=== PATIENT | female | born 1955 | race Caucasian/White ===

== ENCOUNTER 2022-02-05 09:04 | Outpatient (CLI) | payer OTHER, SELFPAY ==
[2022-02-05 09:18] LABS: Hematocrit 42.8 % (35.0-49.0); Hemoglobin 14.1 g/dL (12.0-15.0); Mean Corpuscular HGB Conc 32.9 g/dL (32.0-36.0); Mean Corpuscular Hemoglobin 31.2 pg (27.0-31.0); Mean Corpuscular Volume 94.7 fL (78.0-102.0); Mean Platelet Volume 9.6 fl (9.2-11.8); Platelet Count Result 367 K/mm3 (150-420); Red Blood Count 4.52 M/mm3 (4.20-5.40); Red Cell Distribution Width 12.8 % (11.6-14.4); White Blood Count 6.8 K/mm3 (4.8-10.8)
[2022-02-05 09:35] LABS: Alanine Aminotransferase 37 U/L (14-59); Albumin Level 4.3 g/dL (3.4-5.0); Alkaline Phosphatase 65 U/L (46-116); Anion Gap 8 mmol/L (8-16); Aspartate Amino Transferase 19 U/L (15-37); Bilirubin,Total 0.4 mg/dL (0.00-1.00); Blood Urea Nitrogen 11 mg/dL (7-18); Calcium 9.2 mg/dL (8.5-10.1); Carbon Dioxide 28 mmol/L (21-32); Chloride 103 mmol/L (98-108); Cholesterol 265 mg/dL (0-200); Estimated Glomerular Filt Rate > 60; Glucose 95 mg/dL (70-99); HDL Direct 54 mg/dL (40-60); LDL Cholesterol Calculated 175 mg/dL (<130); Osmolality Calculated 287 mOsm/kg (285-295); Potassium 3.9 mmol/L (3.5-5.1); Sodium 139 mmol/L (136-145); Total Protein 7.3 g/dL (6.4-8.2); Triglycerides 180 mg/dL (0-150)
== END 2022-02-05 09:05 | disposition home or self-care (01) ==
LOC: CHSLAB 09:06
PROVIDERS: PCP Family Medicine; Visit Provider Family Medicine
DX: Z00.00 Encounter for general adult medical examination without abnormal findings (principal)
CPT/HCPCS: 36415; 80053; 80061; 85027

== ENCOUNTER 2022-02-14 12:42 | Outpatient (CLI) | payer OTHER, SELFPAY ==
--- NOTE | ~2022-02-14 | CT_ITS ---
EXAMINATION: CT lung screening DATE: 02/14/2022 13:07 INDICATION: History of tobacco dependence TECHNIQUE: Computed tomography (CT) of the chest was performed without intravenous contrast. The dose -length product was 133.14 mGy-cm. Automated exposure control and iterative reconstruction technique were employed. COMPARISON: None FINDINGS: Heart size is normal. No significant pleural or pericardial effusion. Calcified granuloma p resent in the right middle lobe. No peripheral consolidation. No endobronchial lesions. Mild precarin al lymph node enlargement measuring 1 cm, likely reactive. There is atherosclerosis of the aorta. The re are a few small scattered pulmonary nodules measuring 3 mm or less, likely benign. No endobronchia l lesions. Mild thoracic spondylosis. There are surgical changes of anterior fusion of the lower cerv ical spine. IMPRESSION: 1. Lung-RADS category 2: Benign appearance or behavior. Continue annual screening with noncontrast lo w-dose chest CT in 12 months. Reviewed, dictated and finalized at location A. IMPRESSION: 1. Lung-RADS category 2: Benign appearance or behavior. Continue annual screeni ng with noncontrast low-dose chest CT in 12 months.
== END 2022-02-14 12:43 | disposition home or self-care (01) ==
LOC: CHSIMG 12:43
PROVIDERS: PCP Family Medicine; Visit Provider Family Medicine
DX: Z87.891 Personal history of nicotine dependence (principal)
CPT/HCPCS: 71271

== ENCOUNTER 2022-02-19 12:03 | Outpatient (CLI) | payer OTHER, SELFPAY ==
--- NOTE | ~2022-02-19 | MM_ITS ---
EXAMINATION: MM screening vee BI w chelo HISTORY: Screening TECHNIQUE: Craniocaudal and mediolateral oblique 3-D tomosynthesis images were obtained and synthetic 2-D images were generated. CAD analysis was submitted and interpreted. COMPARISON: No prior mammogram is available for comparison at this institution. BREAST PARENCHYMAL COMPOSITION: The breasts are heterogeneously dense, which may obscure small masses FINDINGS: There are bilateral breast asymmetries which are obscured by dense fibroglandular tissue. T here are no suspicious calcifications. IMPRESSION: 1. Bilateral breast asymmetries. 2. Additional mammographic views and possible breast ultrasound are recommended. BI-RADS Category 0: Incomplete: Needs additional imaging evaluation. Reviewed, dictated and finalized at location A. IMPRESSION: 1. Bilateral breast asymmetries. 2. Additional mammographic views and possible breast ultrasound are recommended . BI-RADS Category 0: Incomplete: Needs additional imaging evaluation.
== END 2022-02-19 12:04 | disposition home or self-care (01) ==
LOC: CHSIMG 12:04
PROVIDERS: PCP Family Medicine; Visit Provider Family Medicine
DX: Z12.31 Encounter for screening mammogram for malignant neoplasm of breast (principal)
CPT/HCPCS: 77063; 77067

== ENCOUNTER 2022-03-01 08:53 | Outpatient (CLI) | payer OTHER, SELFPAY ==
--- NOTE | ~2022-03-01 | MMUS_ITS ---
EXAMINATION: MM diagnostic vee BI w chelo, US breast BI complete HISTORY: Follow-up breast asymmetries TECHNIQUE: Additional 3-D tomosynthesis images of the breasts were performed and synthetic 2-D images were generated. CAD analysis was submitted and interpreted. High resolution bilateral complete breas t ultrasound was performed. COMPARISON: 02/19/2022 BREAST PARENCHYMAL COMPOSITION: The breasts are heterogeneously dense, which may obscure small masses FINDINGS: MAMMOGRAPHIC FINDINGS: There are small masses centered in the upper outer quadrant of the right breast. There is a small mas s in the upper inner quadrant of the left breast, middle third. There are no suspicious calcification s or architectural distortion. ULTRASOUND: Right breast ultrasound: There are normal-appearing lymph nodes in the right axilla. No suspicious ma sses are identified in the right breast. The masses seen on mammography are likely benign intramammar y lymph nodes, although no sonographic correlate is identified. Left breast ultrasound: At 2:00, 4 cm from the nipple there are hypoechoic masses, largest of which i s parallel orientation with posterior acoustic enhancement measuring 7 mm. No internal vascularity. A t 4:00, 6 cm from the nipple, there is a 5 mm intramammary lymph node. At 7:00, 1 cm from the nipple there is a 3 mm cyst. In the retroareolar region medially there is a 3 mm cyst. There are normal-appe aring lymph nodes of the left axilla. IMPRESSION: 1. Probable benign bilateral breast masses. 2. Recommend 6 month follow-up diagnostic bilateral mammogram and ultrasound. BI-RADS category 3, probably benign findings. Reviewed, dictated and finalized at location A. IMPRESSION: 1. Probable benign bilateral breast masses. 2. Recommend 6 month follow-up diagnostic bilateral mammogram and ultrasound. BI-RADS category 3, probably benign findings.
--- NOTE | 2022-03-12 15:33 | WPDPFTINT ---
PFT Procedure Performed PFT Procedure Performed Spirometry with Pre/Post Bronchodilator PFT Interpretation DOS: 03/01/2022 REQUESTING: Dr. Elvin Cárdenas REASON FOR TESTING: dyspnea PULMONARY FUNCTION TESTS Results are reliable and reproducible. Spirometry: pre bronchodilator FEV1 is 2 L, 94% predicted, normal. Pre bronchodilator FVC is 2.89 L, 109% predicted, normal. The FEV1/FVC is 69%, mildly decreased consistent with mild airflow obstruction. After bronchodilator, FEV1 increases by 3%, FVC increases by 2%. These are insignificant changes, Not statistically significant. Flow volume loop: Normal IMPRESSION: This study shows a mild obstructive ventilatory impairment without response to bronchodilator. There are no prior studies for comparison. Lack of response to bronchodilator should not preclude use if clinically indicated. Namita Baldwin MD
== END 2022-03-01 08:54 | disposition home or self-care (01) ==
PROVIDERS: PCP Family Medicine; Visit Provider Family Medicine
DX: R06.00 Dyspnea, unspecified (principal); R92.8 Other abnormal and inconclusive findings on diagnostic imaging of breast
CPT/HCPCS: 76641; 77062; 77066; 94060; G0279

== ENCOUNTER 2022-04-01 08:20 | Outpatient (CLI) | payer OTHER, SELFPAY | END 2022-04-01 08:21 | disposition home or self-care (01) | LOC: CHSCARD 08:21 | PROVIDERS: PCP Family Medicine; Visit Provider Family Medicine | DX: R68.89 Other general symptoms and signs (principal) | CPT/HCPCS: 99199 ==

== ENCOUNTER 2022-06-21 08:51 | Outpatient (CLI) | payer OTHER, SELFPAY ==
--- NOTE | 2022-06-24 08:21 | WPDHOLTEREM ---
Holter/Event Monitor Holter/Event Monitor Date of procedure: 06/21/22 Holter/Event Procedure: 48 Hr Holter Monitor Indications: Abnormal EKG Conclusion: 1. 48 hour holter monitor on 06/21/22. 2. Predominant rhythm is sinus rhythm with sinus arrhythmia. HR range 54-140 bpm; average HR 83 bpm. 3. There are 30 premature supraventricular complexes. There is 1 episode of atrial tachycardia at 126 bpm lasting 5 beats at 01:59. 4. No premature ventricular complexes. No ventricular tachycardia. 5. No sinoatrial or atrioventricular blocks. No significant pauses greater than 2 seconds. 6. Patient reports symptoms of shortness of breath/shakiness, chest tightness which demonstrate sinus rhythm, HR range 85-102 bpm.
== END 2022-06-21 08:52 | disposition home or self-care (01) ==
LOC: CHSCARD 08:52
PROVIDERS: PCP Family Medicine; Visit Provider Family Medicine
DX: R00.9 Unspecified abnormalities of heart beat (principal)
CPT/HCPCS: 93225; 93226

== ENCOUNTER 2023-01-04 09:37 | Outpatient (CLI) | payer MEDICARE, MEDICAID, SELFPAY ==
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
== END 2023-01-04 09:38 | disposition home or self-care (01) ==
LOC: CHSIMG 09:39
PROVIDERS: PCP Family Medicine; Visit Provider Family Medicine
DX: M25.462 Effusion, left knee (principal); S80.02XA Contusion of left knee, initial encounter; M17.12 Unilateral primary osteoarthritis, left knee; M94.262 Chondromalacia, left knee
CPT/HCPCS: 73721

== ENCOUNTER 2023-01-05 10:17 | Emergency (ER) | payer MEDICARE, MEDICAID, SELFPAY ==
--- NOTE | ~2023-01-05 | XR_ITS ---
XR knee LT 3V DATE: 01/05/2023 11:08 INDICATION: Swelling and discoloration throughout the knee TECHNIQUE: Portable three-view examination including crosstable lateral COMPARISON: None FINDINGS: Very prominent anterior prepatellar soft tissue swelling. There is very prominent particular spurring at the patellofemoral and lateral compartments. There is narrowing at the patellofemoral joint. Medial and lateral compartment joint spaces appear relatively preserved. Small suprapatellar knee joint effusion is suggested. No fracture or dislocation, periosteal reaction or bone destruction, radiopaque intra-articular loose body or chondrocalcinosis is noted. IMPRESSION: Prominent prepatellar anterior soft tissue swelling Prominent osteoarthritic change, especially patellofemoral and lateral compartments Reviewed, dictated and finalized at location A. IMPRESSION: Prominent prepatellar anterior soft tissue swelling Prominent osteoarthritic change, especially patellofemoral and lateral compartm ents
[2023-01-05 10:17] VITALS: BP 154/72; PULSE 85; RESP 16; TEMP 36.8; O2SAT 100
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
== END 2023-01-05 11:40 | disposition home or self-care (01) ==
PROVIDERS: Emergency Provider Emergency Medicine
DX: M25.462 Effusion, left knee (principal); Z87.891 Personal history of nicotine dependence
CPT/HCPCS: 73562; 99283

== ENCOUNTER 2023-01-06 08:18 | Outpatient (RCR) | payer MEDICARE, MEDICAID, SELFPAY ==
--- NOTE | 2023-01-06 10:32 | OPREHPOC ---
Outpatient Therapy Plan of Care This is a Multidisciplinary Plan of Care that may contain components documented by all disciplines (PT, OT, and ST.) PT Problem 1 PT Problem #1 Knowledge Deficit PT Goal 1 Goal Patient to demonstrate independence with HEP Target Visit 6 PT Problem 2 PT Problem #2 Pain PT Goal 1 Goal 1. Patient to report highest pain at 2/10 2. Patient to report ability sleep with no disturbance due to knee pain Target Visit 12 PT Problem 3 PT Problem #3 Impaired Range of Motion PT Goal 1 Goal Patient to demonstrate 0-120 deg of L knee AROM to return to ambulation and dressing tasks at PLOF Target Visit 12 PT Problem 4 PT Problem #4 Impaired Strength PT Goal 1 Goal Patient to demonstrate 5/5 L knee strength to return to house hold tasks at PLOF.
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
--- NOTE | 2023-03-28 09:42 | OPREHPOC ---
Outpatient Therapy Plan of Care This is a Multidisciplinary Plan of Care that may contain components documented by all disciplines (PT, OT, and ST.) PT Problem 1 PT Problem #1 Knowledge Deficit PT Goal 1 Goal Patient to demonstrate independence with HEP Target Visit 6 Progress Met PT Problem 2 PT Problem #2 Pain PT Goal 1 Goal 1. Patient to report highest pain at 2/10 2. Patient to report ability sleep with no disturbance due to knee pain Target Visit 12 Progress Met PT Problem 3 PT Problem #3 Impaired Range of Motion PT Goal 1 Goal Patient to demonstrate 0-120 deg of L knee AROM to return to ambulation and dressing tasks at PLOF Target Visit 12 Progress Met PT Problem 4 PT Problem #4 Impaired Strength PT Goal 1 Goal Patient to demonstrate 5/5 L knee strength to return to house hold tasks at PLOF. Target Visit 12 Progress Met PT Problem 5 PT Problem #5 Impaired Functional Mobil PT Goal 1 Goal 1. Patient to report ability to roll in bed with no increase in room spinning 2. Patient to demonstrate no nystagmus with R modified epely 3. Patient to demonstrate to navigate 1 flight of stairs with no increase in knee pain Target Visit 8 Progress Met
--- NOTE | 2023-03-28 09:42 | PTOPDC ---
Assessment and note entered by Marsha Galaviz DPT Evaluation Information Assessment Status Re-evaluation Diagnosis L knee pain, dizziness Onset 12/29/22 Subjective Information Patient reports that she has been able to return to prior daily activities. She reports she has been able to return to work for her prior shifts as well. She reports veritgo room spinning has resolved. She reports independence with HEP. Reported Pain Level Pain Score 0: Self Report Assessment PT Clinical Summary Patient attended 15 visits of skilled PT with all goals met during POC. She met goals for strength, pain, ROM, stair navigation and bppv symptoms. She has been able to return to all previous activities at [facility]. She is independent with HEP and is appropriate for DC at this time. Plan of Care PT Services Indicated No
== END 2023-03-28 14:52 | disposition home or self-care (01) ==
LOC: CHSPT 08:18
PROVIDERS: PCP Family Medicine; Visit Provider Orthopaedic Surgery
DX: M25.462 Effusion, left knee (principal); H81.11 Benign paroxysmal vertigo, right ear
CPT/HCPCS: 95992; 97014; 97016; 97110; 97112; 97150; 97161; 97164; 97530; 97750; G0283

== ENCOUNTER 2023-01-14 01:09 | Day surgery (SDC) | payer MEDICARE, MEDICAID, SELFPAY ==
[2023-01-10 13:28] VITALS: BMI 24.5
--- NOTE | 2023-01-10 13:55 | PC.NURSE ---
Report to the Outpatient Waiting Room, entrance under the green pavilion located off [facility], at time __1:00PM on date ___01/14/23____. Planned Procedure Time: __3:00PM . Time changes happen often and if your time is changed the preop area will call you the afternoon before. - You and your visitor will be asked to self-screen and do not enter if you have any COVID symptoms. - A mask is optional within the hospital at this time. Patients may have clear liquids (water, carbonated beverages, clear teas, apple juice) until 3 hours prior to surgery with a maximum of 20 ounces. - No food from midnight until time of surgery. Take the following medications with a SIP of water the morning of surgery: __TYLENOL W/ CODEINE NEEDED DO NOT STOP ANY OF YOUR OTHER PRESCRIPTION MEDICATIONS PRIOR TO SURGERY ?EXCEPT THE FOLLOWING Medications to discontinue per physician ___HOLD MELOXICAM 7 DAYS PRE-OP-TOOK LAST DOSE YESTERDAY/DR GEE AWARE PER PATIENT.___HOLD ALL VITAMINS/SUPPLEMENTS 3 DAYS PRE-OP-LAST DOSE 01/10/23 Please no make-up, nail jamaican, hairspray, perfume, deodorant, or body powder the day of surgery. No jewelry (including any body piercings) or valuables the day of surgery, leave them at home. Please take a shower or bath the night before, or the morning of, surgery with an antibacterial soap. Wear comfortable, loose fitting clothing. Children are encouraged to wear pajamas. - Jewelry must be removed prior to entering the operating room. Rings and piercings that are not removed may be cut off. - The hospital will not accept responsibility for valuables. - Please leave all valuables, including medications, at home the day of surgery. If you are going home after surgery, a licensed driver manager must drive you home. - NO public transportation without another adult if you receive anesthesia. - We recommend that an adult stay with you for 24 hours following discharge. - We also recommend that you do not drive, make important decision, drink alcoholic beverages, or take any drugs that were not prescribed by your health care provider for at least 24 hours after your discharge time. Follow any additional instructions given to you from your surgeon. If you or anyone in your household have experienced Covid symptoms in the past week, please notify your surgeon or the nurse liaison at the phone number below for possible testing. Telephone instructions given to ___PATIENT and asked if any additional questions and then verbalized understanding. Patient advised to call surgeon office or pre surgery nurse liaison [phone] if any additional questions.
[2023-01-14] VITALS (7 sets, daily range): BP systolic 129–150; BP diastolic 55–94; PULSE 69–94; RESP 14–20; TEMP 36.6; O2SAT 97–100
--- NOTE | 2023-01-14 07:27 | WPDHPUPDATE1 ---
History and Physical Update Update Date/Time: 01/14/23 07:27 History and Physical has been reviewed, including an updated exam of the patient. There are NO changes in the patient's condition. Risks, benefits, and alternatives have been discussed and questions answered. Patient agrees to proceed with procedure.
[2023-01-14] MEDS: ACETAMINOPHEN 500 MG TABLET 1000 MG PO (12:34)
[2023-01-14] MEDS: LACTATED RINGERS 1,000 ML 30 ML IV CONT (12:50)
--- NOTE | 2023-01-14 12:53 | WPDANESEPPF ---
Anes - Initial Pre Proc Eval Procedure: Operation Date: 01/14/23 15:00 Proposed Procedures p Evacuation Hematoma Left Knee - Leobardo Bennett MD Date/Time: 01/14/23 12:53 Surgeon: Leobardo Bennett MD Pre Op Diagnosis: hematoma left knee, contusion of knee, DJD Patient Data Age: 67 Gender: F Height: 1.57 m Weight: 61 kg Allergies Allergy/AdvReac Type Severity Reaction Status Date / Time morphine AdvReac Unknown Vomiting Verified 01/14/23 12:32 Home Medications Medication Instructions Recorded Confirmed Type acetaminophen 300 mg-codeine 15 mg 1 tablet PO Q8H PRN pain #14 tabs 01/05/23 01/14/23 Rx tablet meloxicam 15 mg tablet 15 mg PO DAILY #14 tabs 01/05/23 01/14/23 Rx acetaminophen 500 mg tablet 500 mg PO Q6-8H PRN Pain 01/10/23 01/14/23 History lactobacillus combination no.8 3 3 cell PO HS 01/10/23 01/14/23 History billion cell capsule [id number] ear See Rx Instructions .Route .COMPLEX 01/10/23 01/14/23 History drops,suspension hydrocodone 5 mg-acetaminophen 325 1 - 2 tablet PO Q4-6H PRN pain #30 01/14/23 Rx mg tablet tabs Patient hx anesthesia problems: none Family hx anesthesia problems: none Results Review: All pre-operative results and documents have been reviewed as part of the pre-operative evaluation. [facility] Past Medical History Medical History (Updated 01/14/23 @ 13:05 by Alejandro Payne DO) POTS (postural orthostatic tachycardia syndrome) Surgical History Surgical History History of hysterectomy 1995 History of neck surgery 2002 History of tubal ligation 1989 Social History Social History Smoking packs per day: 1 Smoking cigarettes per day: 20.0 Years smoked: 25 Smoking pack-years: 25.00 Smoking status: Former smoker Tobacco type: cigarettes Smoking end date: 11/09/98 Additional smoking assessment comments: Quit at age 43. 25 pk yr history Alcohol intake: current Drinks per week: 4 Substance use: never Lack of Transportation: No Lack of Food: Never True Current Housing: I Have Housing Concerned About Future Housing: No Difficulty Paying Gas/Electric Bills: No Difficulty Paying for Meds: No Currently Unemployed: No Education: High School Diploma/GED Difficulty w/ Childcare or Family Care: No Living arrangements: with family Additional living arrangements comments: CHILD Spiritual care concerns: No Anes - Eval Final PreProcedure Day of Procedure 01/14/23 12:53 Patient weight: normal Heart: regular rate and rhythm Lungs: clear to auscultation Airway: Mallampati scale class II Neurological: alert and oriented Last oral intake: >/= 8 hours ASA classification: II Emergent: no Anesthetic plan: proceed Anesthesia type and monitoring: general LMA and standard monitoring Results Review: All pre-operative results and documents have been reviewed as part of the pre-operative evaluation. Informed Consent: The patient's anesthetic plan and its attendant risks and benefits were discussed with the patient/family/POA. Questions were solicited and answers provided to the satisfaction of the patient/family/POA.
[2023-01-14] MEDS: KETOROLAC 15 MG/ML VIAL (*BKC) IV PUSH (12:55)
[2023-01-14] MEDS: ceFAZolin 2 GM/D5W 50 ML 2 GM/50 ML BAG IVPB (13:57)
[2023-01-14] MEDS: BUPivacaine HCL 0.25% PF 30 ML VIAL INFILTRATE (14:30)
--- NOTE | 2023-01-14 15:07 | W.PM.PROC2 ---
Procedure Note - Detailed Date of Procedure 01/14/23 Pre-op Diagnosis Hematoma left knee, contusion of knee, with Brown Mulberry lesion. Post-op Diagnosis Same Procedure Performed Evacuation left knee subcutaneous hematoma. Surgeon Leobardo Bennett MD Anesthesia General Findings Very large thick bloody hematoma. Significant degloving injury of the subcutaneous tissues along the medial patellar retinaculum. Description of Procedure Preoperative antibiotics were given. A general anesthetic was administered. Leg was prepped and draped in the usual sterile fashion. A longitudinal incision was centered just proximal and medial to the proximal pole of the patella. This was made such that a future total knee incision would be in continuity with the scar. Dissection was brought down through subcutaneous tissues. Expression of copious coagulated blood was easily performed at this point. The wound was copiously irrigated with antibiotic saline solution. The subcutaneous tissues were closed with 3-0 Monocryl suture and the skin closed with vertical mattress 3-0 Prolene suture. Bulky dressing was applied with a knee immobilizer. The patient was extubated and brought to the recovery room in stable condition. There were no complications. Estimated Blood Loss -5.0 Drains No Packing No Pathology None sent Complications No immediate complications Condition Stable Disposition PACU [facility] Billing Surgery - Charge Forward: Surgery Billing
== END 2023-01-14 16:15 | disposition home or self-care (01) ==
PROVIDERS: PCP Family Medicine; Visit Provider Orthopaedic Surgery
PROC: (CPT 27301; principal; 2023-01-14 15:00)
DX: S80.02XA Contusion of left knee, initial encounter (principal); V29.99XA Rider (driver) (passenger) of other motorcycle injured in unspecified traffic accident, initial encounter; M17.12 Unilateral primary osteoarthritis, left knee; Z87.891 Personal history of nicotine dependence
CPT/HCPCS: 27301; A9270; J0690; J1100; J1885; J2250; J2405; J2704; J3010; J7120

== ENCOUNTER 2024-01-15 12:05 | Outpatient (CLI) | payer MEDICARE, SELFPAY ==
--- NOTE | ~2024-01-15 | XR_ITS ---
XR shoulder RT min 2V 01/15/2024 12:27 Indication: Right shoulder pain Procedure: 4 views right shoulder Comparison: No prior studies for comparison. Findings: There is mild polyarticular osteoarthritis of the right shoulder. No soft tissue abnormalit y. No foreign bodies. No fracture or traumatic malalignment. Impression: 1: Mild polyarticular osteoarthritis. Reviewed, dictated and finalized at location B. Impression: 1: Mild polyarticular osteoarthritis.
--- NOTE | ~2024-01-15 | XR_ITS ---
EXAMINATION: XR_CERV2-3V_CR DATE: 01/15/2024 12:27 INDICATION: Pain in right shoulder. TECHNIQUE: 3 views of cervical spine were obtained. COMPARISON: None. FINDINGS: There is 2 mm retrolisthesis of C4 on C5 and 2 mm anterolisthesis of C7 on T1. There is 4 d egrees dextrocurvature of cervical spine. There are changes of anterior fusion procedure from C5 to C 7 with interbody bone graft and anterior plate and screws. There is moderately decreased disc height at C3-C4 and severely decreased disc height at C4-C5. At C4-C5, there is severe bilateral uncovertebr al joint osteoarthritis. There is multilevel mild facet joint osteoarthritis. There is no central can al stenosis at C3-C4 and C4-C5. No prevertebral soft tissue swelling. IMPRESSION: 1. Severe cervical spondylosis. 2. Anterior fusion procedure from C5 to C7. Reviewed, dictated and finalized at location A.
== END 2024-01-15 12:06 | disposition home or self-care (01) ==
LOC: CHSIMG 12:09
PROVIDERS: PCP Family Medicine; Visit Provider Family Medicine
DX: M25.511 Pain in right shoulder (principal); M43.02 Spondylolysis, cervical region; Z98.1 Arthrodesis status; M19.011 Primary osteoarthritis, right shoulder
CPT/HCPCS: 72040; 73030

== ENCOUNTER 2024-01-28 10:07 | Outpatient (CLI) | payer MEDICARE, SELFPAY ==
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
== END 2024-01-28 10:08 | disposition home or self-care (01) ==
LOC: MICIMG 10:08
PROVIDERS: PCP Family Medicine; Visit Provider Psychiatry & Neurology Neurology
DX: Z87.828 Personal history of other (healed) physical injury and trauma (principal)
CPT/HCPCS: 70551

== ENCOUNTER 2024-02-02 08:52 | Outpatient (RCR) | payer MEDICARE, SELFPAY ==
--- NOTE | 2024-02-02 09:59 | PTOPEVAL1 ---
Assessment and note entered by Sterling Parker Evaluation Information Assessment Status Evaluation ICD-10 Condition Codes (PT) M25.511 Onset 01/02/24 Subjective Information Pt. reports that pain began while mowing grass 1 month ago. She reports that she was using a push mower and felt pain after pulling the mower. She reports she went to the doctor and was given mm. relaxer. She states that it does help the pain. She describes pain from the neck into the shoulder . She reports that she has improve slightly over the moth. Pain is most notable in morning. She notices pain with mopping or vacuuming her home. She states that she has no trouble with sleeping at night. She does have hx of neck fusion at C4-5 -6. 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 She states that her goal is to decrease her neck and shoulder pain. Reported Pain Level Pain Score 2: Self Report Assessment PT Clinical Summary Pt. is a 68 year old female who enters the clinic with right shoulder pain. Pt. objective findings are consistent with cervical nerve root impingement on this date. She presents with impaired postural awareness, impaired periscapular strength, pain, impaired cervical spine ROM and functional decline. Continued skilled PT is indicated in order to improve these areas to allow the pt. to be able to complete all IADL's with improved comfort and efficiency. Plan of Care Interventions Electrical Stimulation,Hot Pack/Cold Pack,Manual Therapy,Neuro Re-education,Patient/Caregiver Educati,Therapeutic Activities,Therapeutic Exercise PT Services Indicated Yes Treatment Frequency and 2x/week x 10 visits Duration These treatments will address the objective and functional deficits as defined above. The patient will be advanced safely and appropriately in order for the patient to progress towards his/her prior level of function. Additional exercises will be introduced and as well as a comprehensive home exercise program upon discharge, if needed, ?to ensure carryover of functional gains achieved in the clinic. This treatment plan has been reviewed and agreement upon by the patient.
--- NOTE | 2024-02-02 09:59 | OPREHPOC ---
Outpatient Therapy Plan of Care This is a Multidisciplinary Plan of Care that may contain components documented by all disciplines (PT, OT, and ST.) PT Problem 1 PT Problem #1 Knowledge Deficit PT Goal 1 Goal / Goal Update Pt. will be independent with a HEP addressing postural awareness and strength Target Visit 2 PT Problem 2 PT Problem #2 Pain PT Goal 1 Goal / Goal Update Pt. will report pain reduction to 1/10 at worst at the area of the right neck and upper trap Pt. will be able to sleep through the night without pain disturbance. Target Visit 10 PT Problem 3 PT Problem #3 Impaired Range of Motion PT Goal 1 Goal / Goal Update Pt. will demonstrate 80 degrees active c-spine rotation in order to improve visual field with activities such as driving Target Visit 5 PT Problem 4 PT Problem #4 Impaired Functional Mobil PT Goal 1 Goal / Goal Update Pt. will present with less than 20% limitation on the Quick DASH indicating significant Target Visit 10
--- NOTE | 2024-03-05 10:01 | OPREHPOC ---
Outpatient Therapy Plan of Care This is a Multidisciplinary Plan of Care that may contain components documented by all disciplines (PT, OT, and ST.) PT Problem 1 PT Problem #1 Knowledge Deficit PT Goal 1 Goal / Goal Update Pt. will be independent with a HEP addressing postural awareness and strength Target Visit 2 Progress Met PT Problem 2 PT Problem #2 Pain PT Goal 1 Goal / Goal Update Pt. will report pain reduction to 1/10 at worst at the area of the right neck and upper trap Pt. will be able to sleep through the night without pain disturbance. Target Visit 10 Progress Not Met PT Problem 3 PT Problem #3 Impaired Range of Motion PT Goal 1 Goal / Goal Update Pt. will demonstrate 80 degrees active c-spine rotation in order to improve visual field with activities such as driving Target Visit 5 Progress Not Met PT Problem 4 PT Problem #4 Impaired Functional Mobil PT Goal 1 Goal / Goal Update Pt. will present with less than 20% limitation on the Quick DASH indicating significant Target Visit 10 Progress Not Met
--- NOTE | 2024-03-05 10:02 | PTOPDC ---
Assessment and note entered by JT File, PT Evaluation Information Assessment Status Discharge ICD-10 Condition Codes (PT) M25.511 Onset 01/02/24 Subjective Information patient reports she has shooting pains at times still that shoot down the R side neck, into the shoulder, and down the arm. she reports this pain is increased with movement, but it depends on the movement according to the patient. she reports raising the R arm up is painful, pulling on the dogs toys is painful, and trying to lift objects with the R arm is painful. she reports she also has shooting pains when turning the head to the R too quickly. she reports this morning her symptoms have included numbness down the fingers of the R hand and behind the back of the R arm. she reports she is really unchanged since starting skilled PT . Reported Pain Level Pain Score 3: Self Report Assessment PT Clinical Summary mrs. aguirre presents to skilled PT services for her 10th skilled PT visit. she continues to have symptoms in the R neck and down the R UE. her symptoms indicate a likely R cervical radiculopathy. she is not improved since starting PT, and has only met goal for HEP performance. she has worsened per the quick dash and displays decreased cervical arom rotation and R triceps strength. she will DC skilled PT today due to lack of improvement with treatment, and would best return to PCP for referral to [id number] specialist. Plan of Care PT Services Indicated Yes
== END 2024-03-05 14:02 | disposition home or self-care (01) ==
LOC: CHSPT 08:52
PROVIDERS: Visit Provider Family Medicine
DX: M25.511 Pain in right shoulder (principal)
CPT/HCPCS: 97014; 97110; 97112; 97140; 97161; G0283

== ENCOUNTER 2024-02-12 11:42 | Outpatient (CLI) | payer MEDICARE, SELFPAY ==
[2024-02-12 11:53] LABS: Basophils Absolute Auto 0.07 K/mm3 (0.00-0.10); Eosinophils Absolute Auto 0.11 K/mm3 (0.02-0.50); Eosinophils Percent Auto 1.5 % (1.0-6.0); Hematocrit 39.8 % (35.0-42.0); Hemoglobin 13.5 g/dL (11.7-13.8); Immature Granulocyte Absolute 0.02 K/mm3 (0.00-0.00); Immature Granulocyte Percent A 0.3 % (0.0-0.0); Lymphocytes Absolute Auto 3.02 K/mm3 (1.10-4.50); Lymphocytes Percent Auto 42.2 % (18.0-42.0); Mean Corpuscular HGB Conc 33.9 g/dL (32-36); Mean Corpuscular Hemoglobin 32.4 pg (27.0-31.0); Mean Corpuscular Volume 95.4 fL (78.0-102.0); Mean Platelet Volume 9.6 fl (9.2-11.8); Monocytes Percent Auto 8.4 % (2.0-11.0); Neutrophils Absolute Auto 3.33 K/mm3 (1.70-7.20); Neutrophils Percent Auto 46.6 % (50.0-70.0); Platelet Count Result 323 K/mm3 (150-420); Red Blood Count 4.17 M/mm3 (4.20-5.40); Red Cell Distribution Width 12.6 % (11.6-14.4); White Blood Count 7.2 K/mm3 (4.8-10.8)
[2024-02-12 12:59] LABS: Alanine Aminotransferase 25 U/L (14-59); Albumin Level 4.3 g/dL (3.4-5.0); Alkaline Phosphatase 56 U/L (46-116); Anion Gap 10 mmol/L (4-12); Aspartate Amino Transferase 19 U/L (15-37); Bilirubin,Total 0.3 mg/dL (0.00-1.00); Blood Urea Nitrogen 12 mg/dL (7-18); Calcium 9.2 mg/dL (8.5-10.1); Carbon Dioxide 29 mmol/L (21-32); Chloride 104 mmol/L (98-108); Cholesterol 263 mg/dL (0-200); Estimated Glomerular Filt Rate > 60; Glucose 94 mg/dL (70-99); HDL Direct 61 mg/dL (40-60); LDL Cholesterol Calculated 169 mg/dL (<130); Osmolality Calculated 295 mOsm/kg (285-295); Potassium 4.5 mmol/L (3.5-5.1); Sodium 143 mmol/L (136-145); Total Protein 6.8 g/dL (6.4-8.2); Triglycerides 165 mg/dL (0-150)
[2024-02-12 13:00] LABS: Thyroid Stimulating Hormone Reflex 0.37 u/IU/mL (0.36-3.74)
== END 2024-02-12 11:43 | disposition home or self-care (01) ==
LOC: CHSLAB 11:43
PROVIDERS: PCP Family Medicine; Visit Provider Family Medicine
DX: E03.9 Hypothyroidism, unspecified (principal); S80.02XA Contusion of left knee, initial encounter; Z13.6 Encounter for screening for cardiovascular disorders; R51.9 Headache, unspecified
CPT/HCPCS: 36415; 80053; 80061; 84443; 85025

== ENCOUNTER 2024-02-13 07:15 | Outpatient (CLI) | payer MEDICARE, SELFPAY ==
--- NOTE | ~2024-02-13 | CT_ITS ---
EXAMINATION: CTA BRAIN/CAROTID DATE: 02/13/2024 08:27 INDICATION: Right-sided ischemic optic neuropathy TECHNIQUE: Computed tomographic angiography (CTA) of the head and neck was performed with 100 mL Omni paque-350 intravenous contrast. Multiplanar reconstructions and maximum intensity projection 3D-recon structions of the carotid arteries and of the intracranial arteries were created by the technologist on a separate workstation. Precontrast CT of the head was also obtained. Automated exposure control and iterative reconstruction technique were employed.The dose-length product was 894.45 mGy-cm. COMPARISON: None. FINDINGS: Carotid arteries: There is no evident atherosclerotic plaque with 0% stenosis of the right carotid bulb relative to nor mal distal artery lumen diameter (NASCET criteria). There is a small amount of atherosclerotic plaque with 0% stenosis of the left carotid bulb relative to normal distal artery lumen diameter. Bilateral vertebral arteries are codominant with no evident atherosclerosis. Cervical soft tissues are unremar kable. Moderate emphysema and minimal pleural parenchymal scarring at the visualized apices of the naya ngs. Severe cervical spondylosis with C5-C7 anterior spinal fusion with anterior plate and screw fixa tion. Head: No acute intracranial hemorrhage, acute infarction or abnormal extra axial fluid collection. Ventricl es are normal and symmetric. No mass/mass effect. No abnormally enhancing brain lesions on the postco ntrast imaging. The orbits, paranasal sinuses and mastoid air cells are normal. Intracranial arteries Small amount of calcified atherosclerotic plaque without significant stenosis at the right carotid si phon. There is no hemodynamically significant stenosis in the vertebral, basilar and internal carotid arteries. Vertebral arteries are codominant. There are no aneurysms identified. Both A1 and P1 segm ents are patent. Cerebral arterial arborization appears symmetric. IMPRESSION: 1. No evident plaque with 0% stenosis of the right carotid bulb relative to normal distal artery lume n diameter (NASCET criteria). 2. Small amount of atherosclerotic plaque with 0% stenosis of the left carotid bulb relative to alvina l distal artery lumen diameter. 3. Unremarkable head CT and cerebral CT angiogram. Reviewed, dictated and finalized at location A. IMPRESSION: 1. No evident plaque with 0% stenosis of the right carotid bulb relative to nor mal distal artery lumen diameter (NASCET criteria). 2. Small amount of atherosclerotic plaque with 0% stenosis of the left carotid bulb relative to normal distal artery lumen diameter. 3. Unremarkable head CT and cerebral CT angiogram.
== END 2024-02-13 07:16 | disposition home or self-care (01) ==
PROVIDERS: PCP Family Medicine; Visit Provider Psychiatry & Neurology Neurology
DX: R51.9 Headache, unspecified (principal); R42 Dizziness and giddiness; G89.29 Other chronic pain; H47.011 Ischemic optic neuropathy, right eye; S09.90XS Unspecified injury of head, sequela
CPT/HCPCS: 70496; 70498; Q9967

== ENCOUNTER 2024-03-27 08:22 | Outpatient (CLI) | payer MEDICARE, SELFPAY ==
--- NOTE | ~2024-03-27 | MR_ITS ---
EXAMINATION: MR cervical spine wo con DATE: 03/27/2024 09:10 INDICATION: Spondylosis without myelopathy or radiculopathy. TECHNIQUE: Magnetic resonance imaging (MRI) of the cervical spine was performed without intravenous c ontrast. Sequences included sagittal T2-weighted FSE, sagittal T2-weighted FS FSE, sagittal T1-weight ed FSE, axial MERGE, and axial T2-weighted FSE. COMPARISON: Cervical spine radiographs 01/15/2024 FINDINGS: There is 3 mm retrolisthesis of C4 on C5. There changes of anterior fusion procedure from C 5 to C7 with interbody bone graft and anterior plate and screws. There is mild chronic anterior wedgi ng of C3 vertebral body. There is moderately decreased disc height at C3-C4 and severely decreased di sc height at C4-C5. The spinal cord signal intensity is normal. The following disc levels are specifi amer[place] discussed: C2-C3: The disc does not extend beyond the endplate margin. There is no uncovertebral joint osteoarth ritis. There is severe right and mild left facet joint osteoarthritis. There is no neural foraminal s tenosis. There is no central canal stenosis. C3-C4: The disc is bulging. There is severe bilateral uncovertebral joint osteoarthritis. There is se chloé bilateral facet joint osteoarthritis. There is severe right and moderate left neural foraminal s tenosis. There is mild central canal stenosis with ventral indentation of the spinal cord. C4-C5: The disc is bulging. There is severe bilateral uncovertebral joint osteoarthritis. There is mo derate bilateral facet joint osteoarthritis. There is severe bilateral neural foraminal stenosis. The re is moderate central canal stenosis with ventral and dorsal indentation of the spinal cord. C5-C6: There is mild bilateral uncovertebral joint hypertrophy. There is no facet joint hypertrophy. There is no neural foraminal stenosis. There is no central canal stenosis. C6-C7: There is mild right and moderate left uncovertebral joint hypertrophy. There is mild right fac et joint osteoarthritis. There is mild left neural foraminal stenosis. There is no central canal sten osis. C7-T1: The disc does not extend beyond the endplate margin. There is no uncovertebral joint osteoarth ritis. There is moderate right and severe left facet joint osteoarthritis. There is mild left neural foraminal stenosis. There is no central canal stenosis. IMPRESSION: 1. Severe cervical spondylosis. 2. Anterior fusion procedure from C5 to C7. Reviewed, dictated and finalized at location A. O COMPUTER SPECIALIST
== END 2024-03-27 08:23 | disposition home or self-care (01) ==
LOC: CHSIMG 08:25
PROVIDERS: PCP Family Medicine; Visit Provider Family Medicine
DX: M47.812 Spondylosis without myelopathy or radiculopathy, cervical region (principal); Z98.1 Arthrodesis status
CPT/HCPCS: 72141

== ENCOUNTER 2024-09-22 13:49 | Outpatient (CLI) | payer MEDICARE, SELFPAY ==
--- OUTSIDE RECORDS SUMMARY | 2024-09-22 14:01 | XMS_ITS | Referral Summary ---
Author Organization [facility] Address [address] [place] [address] Care Team Providers Care Chief Service Observer Name Role Phone Elvin Cárdenas DO Primary Care Provider Encounters Date Type Department Care Team Description 09/08/2024 10:15 AM CDT Office Visit [facility] Ophthalmology [address] [place] [phone] Hank Watkins MD NAION (non-arteritic anterior ischemic optic neuropathy), right eye (Primary Dx); Optic neuropathy, right 09/08/2024 9:30 AM CDT Imaging Exam [facility] Ophthalmology [address] [phone] Pseudopapilledema of both optic discs 09/08/2024 9:20 AM CDT Imaging Exam [facility] Ophthalmology [address] [place] [phone] Pseudopapilledema of both optic discs; Encounter for observation for other suspected diseases and conditions ruled out 08/31/2024 Telephone [facility] Ophthalmology [facility] [address] [phone] Hank Watkins MD 07/28/2024 Orders Only [facility] Ophthalmology [address] [facility] [address] [place] [address] Hank Watkins MD Pseudopapilledema of both optic discs (Primary Dx); Encounter for observation for other suspected diseases and conditions ruled out from Last 3 Months Allergies Active Allergy Reactions Criticality Noted Date Comments Morphine Other (See comments),Unknown Medium 022 Nausea Medications atorvastatin (LIPITOR) 80 mg tablet Take 1 tablet (80 mg total) by mouth daily Active lactobacillus combo no.11 15 billion cell capsule, sprinkle Take by mouth Active vitamins A,C,U-tfkx-oazmq r (OCUVITE) 2,148 mcg-113 mg-45 mg-17.4mg tablet 1 tablet Active Active Problems Problem Noted Date Diagnosed Date Optic neuropathy, right 09/08/2024 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), 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 Head injury 06/07/2024 Migraine 06/07/2024 Cervical vertebral fusion 06/07/2024 Neck pain 06/07/2024 POTS (postural orthostatic tachycardia syndrome) 06/07/2024 Overview (06/07/2024): Diagnosed in 2022 Social History Tobacco Use Types Packs/Day Years Used Date Smoking Tobacco: Former Cigarettes Tobacco Cessation:Counseling Given: Not Answered Comments Unknown Sex and Gender Information Value Date Recorded Sex Assigned at Not on file 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 Gender Identity Not on file Sexual Orientation Not on file Plan of Treatment Not on file Procedures Procedure Name Priority Date/Time Associated Diagnosis Comments OCT, OPTIC NERVE - OU - BOTH EYES Routine 09/08/2024 9:40 AM CDT Pseudopapilledema of both optic discs OCT, RETINA - OU - BOTH EYES Routine 09/08/2024 9:40 AM CDT Encounter for observation for other suspected diseases and conditions ruled out BARAKAT VISUAL FIELD - OU - BOTH EYES Routine 09/08/2024 9:40 AM CDT Pseudopapilledema of both optic discs from Last 3 Months Results * OCT, Optic Nerve - OU - Both Eyes (09/08/2024 9:40 AM CDT) RNFL OS 86 micrometers CONTINUUM RNFL OD 71 micrometers CONTINUUM Anatomical Region Laterality Modality Head Other Narrative 09/08/2024 5:44 PM CDT Right Eye Reliability was good. Average RNFL thickness 71 micrometers. Left Eye Reliability was good. Average RNFL thickness 86 micrometers. Notes Mild, diffuse retinal nerve fiber layer thinning OD with focal superior thinning. Stable. Stable and normal retinal nerve fiber layer thickness left eye (OS). Hank Watkins MD OPHTH TOMOGRAPHY Fin al Result * OCT, Retina - OU - Both Eyes (09/08/2024 9:40 AM CDT) Central Macular Thickness OS 270 mircometers CONTINUUM Central Macular Thickness OD 273 micrometers CONTINUUM Anatomical Region Laterality Modality Head Other Narrative 09/08/2024 5:45 PM CDT Right Eye Quality was good. Scan locations included subfoveal. Progression has been stable. Findings include normal foveal contour. Macular thickness was 273 micrometers. Left Eye Quality was good. Scan locations included subfoveal. Progression has been stable. Findings include normal foveal contour. Macular thickness was 270 mircometers. Notes GCL OD: 82 OS: 81 Normal macular and ganglion cell layer (GCL) thickness both eyes (OU). Stable both eyes (OU). Hank Watkins MD OPHTH TOMOGRAPHY Fin al Result * Barakat Visual Field - OU - Both Eyes (09/08/2024 9:40 AM CDT) Pattern Deviation OS 1.74 dB CONTINUUM Pattern Deviation OD 4.45 dB CONTINUUM Mean Deviation OS 0.56 dB CONTINUUM Mean Deviation OD -1.32 dB CONTINUUM Anatomical Region Laterality Modality Head Other Narrative 09/08/2024 5:44 PM CDT Right Eye Fixation was borderline. Cooperation was good. Reliability was borderline. Progression has improved. Foveal threshold was normal. Findings include inferior nasal step defect. Mean Deviation was -1.32 dB. Pattern Deviation was 4.45 dB. Left Eye Fixation was good. Cooperation was good. Reliability was good. Progression has been stable. Foveal threshold was normal. Findings include non-specific defects. Mean Deviation was 0.56 dB. Pattern Deviation was 1.74 dB. Hank Watkins MD OPHTH VISUAL FIELD F inal Result from Last 3 Months [id number] MEDICARE ADVANTAGE Care Teams Chief Service Observer Relationship Specialty Start Date End Date Elvin Cárdenas DO [address] [place] [address] PCP - General Family Medicine 02/24/24
--- OUTSIDE RECORDS SUMMARY | 2024-09-22 14:01 | XMS_ITS | Clinical Summary ---
Author Organization [facility] Address [address] [place] [address] Care Team Providers Care Cleaning Handyman Name Role Phone Saurabhza Elvinconrad TYLER Primary Care Provider [phone] Ubaldo Negrete MD Unavailable [phone] Allergies Active Allergy Reactions Criticality Noted Date Comments Morphine Unknown 04/19/2022 Medications metoprolol tartrate (LOPRESSOR) 25 MG tablet Take 1 tablet (25 mg total) by mouth 2 (two) times daily. 60 tablet 3 Active isosorbide mononitrate ER (IMDUR) 30 MG 24 hr tablet Take 1 tablet (30 mg total) by mouth daily. 30 tablet 5 3 Active COMPRESSION STOCKINGS, DME,Indications: POTS (postural orthostatic tachycardia syndrome) Apply 1 Package topically daily. Jobst knee high 20-30mmHg of choice 2 Package 2 3 Active Active Problems Problem Noted Date Diagnosed Date POTS (postural orthostatic tachycardia syndrome) 07/03/2022 Essential (primary) hypertension 07/03/2022 Chest pain 04/19/2022 SOBOE (shortness of breath on exertion) 04/19/20 Resolved Problems Problem Noted Date Diagnosed Date Resolved Date Secondary hypertension 06/21/202207/03 Social History Tobacco Use Types Packs/Day Years Used Date Smoking Tobacco: Former Cigarettes Tobacco Cessation:Counseling Given: Not Answered Comments Unknown Sex and Gender Information Value Date Recorded Sex Assigned at Not on file 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 Gender Identity Not on file Sexual Orientation Not on file Last Filed Vital Signs Vital Sign Reading Time Taken Comments Blood Pressure 140/90 07/03/2022 9:31 AM ELASTIC ATTACHER 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 Pulse 88 07/03/2022 9:30 AM ELASTIC ATTACHER OVERLOCK Temperature 35.6 C (96.1 F) 05/20/2022 1:00 PM ELASTIC ATTACHER OVERLOCK Respiratory Rate 18 07/03/2022 9:30 AM ELASTIC ATTACHER OVERLOCK Oxygen Saturation 96% 05/20/2022 1:00 PM ELASTIC ATTACHER OVERLOCK Inhaled Oxygen Concentration - - Weight 64.4 kg (142 lb) 07/03/2022 9:30 AM ELASTIC ATTACHER OVERLOCK Height 157.5 cm (5' 2 ) 07/03/2022 9:30 AM ELASTIC ATTACHER OVERLOCK Body Mass Index 25.97 07/03/2022 9:30 AM ELASTIC ATTACHER 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 Plan of Treatment Health Maintenance Due Date Last Done Comments Colorectal Cancer Screening Colonoscopy (10 Years) 1957 Hepatitis C 07/14/1975 DTaP, Tdap and Td Vaccines ( 1 - Tdap) 1976 Mammogram Screening 1997 Pneumococcal Vaccine: 50+ Years (1 of 1 - PCV) 07/14/2007 Zoster Vaccines (1 of 2) 07/14/2007 Dexa Scan (General) 2022 COVID-19 Vaccine (3 - 2023-2 5 season) 2024 04/12/2022, 03/27/2021 RSV Immunization or 60+ Years (1 - 1-dose 75+ series) 2032 Meningococcal B Vaccine Aged Out No l onger eligible based on patient's age to complete this topic Meningococcal Vaccine Aged Out No gold claudette eligible based on patient's age to complete this topic RSV Immunizations Under 20 Months Aged Out No longer eligible b ased on patient's age to complete this topic Insurance [employer] Care Teams Cleaning Handyman Relationship Specialty Start Date End Date Elvin Cárdenas DO [address] [place] [address] PCP - General FAMILY PRACTICE 04/18/22 Ubaldo Negrete MD [address] [place] [address] Consulting Physician INTERVENTIONAL CARDIOLOGY 04/18/22
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
--- NOTE | 2024-09-22 14:47 | ECG_ITS ---
Test Date: 2024-09-22 15:00:54 Measurements Intervals [place] Rate: 76 P: 57 FL: 120 QRS: 13 QRSD: 98 T: 41 QT: 381 QTc: 429 Interpretive Statements SINUS RHYTHM WITH SINUS ARRHYTHMIA WARNING: DATA QUALITY MAY AFFECT INTERPRETATION No previous ECG available for comparison Electronically Signed On 09-22-2024 18:23:12 CDT by Lori Bowens
[2024-09-22 15:24] LABS: Hematocrit 39.8 % (37.0-47.0); Hemoglobin 13.2 g/dL (12.0-15.0); Mean Corpuscular HGB Conc 33.2 g/dl (32-36); Mean Corpuscular Hemoglobin 31.6 pg (26-34); Mean Corpuscular Volume 95.2 fl (80-100); Mean Platelet Volume 10.1 fl (7.4-10.4); Platelet Count Result 343 k/mm3 (150-375); Red Blood Count 4.18 M/mm3 (4.2-5.4); Red Cell Distribution Width 12.8 % (11.5-14.5); White Blood Count 8.8 K/mm3 (4.5-10.0)
[2024-09-22 15:26] LABS: Prothrombin Time 13.3 Seconds (11.1-14.7)
[2024-09-22 15:27] LABS: Partial Thromboplastin Time 29.5 Seconds (22.3-36.8)
[2024-09-22 15:30] LABS: Anion Gap 9 mmol/L (4-12); Blood Urea Nitrogen 11 mg/dL (7-17); Calcium 9.5 mg/dL (8.4-10.2); Carbon Dioxide 27 mmol/L (22-30); Chloride 106 mmol/L (98-107); Estimated Glomerular Filt Rate > 60; Glucose 95 mg/dL (65-110); Potassium 3.7 mmol/L (3.4-5.0); Sodium 142 mmol/L (137-145)
[2024-09-22 15:35] LABS: Add Urine Microscopic? YES; Appearance Urine Clear (Clear); Bacteria Urine None Seen /hpf; Bilirubin Urine Negative (Negative); Blood Urine Negative (Negative); Color Urine Yellow (Yellow); Glucose Urine UA Negative (Negative); Ketones Urine Negative (Negative); Leukocyte Esterase Ur Trace LEU/UL (Negative); Nitrate Urine Negative (Negative); Non Pathogenic Casts 0-2; Protein Urine Negative (Negative); RBC Urine 0-2 /hpf (0-2); Specific Grav Ur 1.015 (1.001-1.035); Squamous Epithelial Cell Urine None Seen /hpf (Few); WBC Urine 0-5 /hpf (0-3)
== END 2024-09-22 13:50 | disposition home or self-care (01) ==
LOC: ANHSURGERY 13:52
PROVIDERS: PCP Family Medicine; Visit Provider Neurological Surgery
DX: M47.812 Spondylosis without myelopathy or radiculopathy, cervical region (principal); Z01.818 Encounter for other preprocedural examination
CPT/HCPCS: 36415; 80048; 81001; 85027; 85610; 85730; 86850; 86900; 86901; 93005

== ENCOUNTER 2024-10-05 00:33 | Day surgery (SDC) | payer MEDICARE, SELFPAY ==
[2024-09-22 13:58] VITALS: BMI 24.7
--- NOTE | 2024-09-22 14:07 | PC.NURSE ---
Report to the Outpatient Waiting Room, entrance under the green pavilion located off [facility], at time _10:30 AM on date __10/05/24 . Planned Procedure Time: __12:30 PM .? Time changes happen often and if your time is changed the preop area will call you the afternoon before. - You and your visitor will be asked to self-screen and do not enter if you have any COVID symptoms. Please call surgeon if you need to reschedule. - A mask is optional within the hospital at this time. Patients may have clear liquids (water, carbonated beverages, clear teas, apple juice) until 3 hours prior to surgery ( 9:30 AM)with a maximum of 20 ounces. - No food from midnight until time of surgery and no smoking, or chewing tobacco (or any form of nicotine). No chewing gum, candy or mints. - Infants may have breast milk until 4 hours before surgery, infant formula 6 hours prior to surgery. - Children will be allowed to drink immediately following surgery.? If applicable, please bring a bottle or sippy cup to assist with drinking. Juice, water, soda, and popsicles are readily available.? For infants on formula, please bring formula the day of surgery.? Pacifiers are allowed. Take only the following medications with a SIP of water on the morning of surgery: NONE DO NOT STOP ANY OF YOUR OTHER PRESCRIPTION MEDICATIONS PRIOR TO SURGERY EXCEPT THE FOLLOWING Hold all vitamins and supplements for 3 days per anesthesiologist.LAST DOSE 10/01/24 Medications to discontinue per physician IBUPROFEN PER DR PATEL Please no make-up, nail uruguayan, hairspray, perfume, deodorant, or body powder the day of surgery.? No jewelry (including any body piercings) or valuables the day of surgery, leave them at home.? Please take a shower or bath the night before, or the morning of, surgery with an antibacterial soap.? Wear comfortable, loose fitting clothing.? Children are encouraged to wear pajamas. - Jewelry must be removed prior to entering the operating room.? Rings and piercings that are not removed may be cut off. - The hospital will not accept responsibility for valuables.? - Please leave all valuables, including medications, at home the day of surgery. If you are going home after surgery, a licensed class a truck driver must drive you home.? - NO public transportation without another adult if you receive anesthesia. - We recommend that an adult stay with you for 24 hours following discharge. - We also recommend that you do not drive, make important decision, drink alcoholic beverages, or take any drugs that were not prescribed by your health care provider for at least 24 hours after your discharge time. For Pediatric surgeries, we recommend two adults accompany the child home. Follow any additional instructions given to you from your surgeon. VERBAL AND WRITTEN instructions given to __PATIENT and asked if any additional questions and then verbalized understanding. Patient advised to call surgeon office or pre surgery nurse liaison [phone] if any additional questions.
[2024-09-22 14:44] VITALS: BP 131/78; PULSE 73; RESP 18; TEMP 37.1; O2SAT 99
[2024-10-05] VITALS (11 sets, daily range): BP systolic 127–171; BP diastolic 58–84; PULSE 62–97; RESP 10–20; TEMP 36–36.6; O2SAT 93–100
--- NOTE | ~2024-10-05 | XR_ITS ---
XR fluoroscopy no charge Indication: Anterior cervical discectomy TECHNIQUE: Fluoroscopy used during Anterior cervical discectomy performed by [Karson Johnson MD] on 10/05/2024. 3 seconds of fluoroscopy with 2 fluoroscopic images captured. FINDINGS: Correlate with procedure note. IMPRESSION: Fluoroscopy used during Anterior cervical discectomy. Reviewed, dictated and finalized at location A.
--- OUTSIDE RECORDS SUMMARY | 2024-10-05 00:36 | XMS_ITS | Referral Summary ---
Author Organization [facility] Address [address] [place] [address] Care Team Providers Care Long Filler Cigar Roller Machine Name Role Phone Elvin Cárdenas DO Primary Care Provider Encounters Date Type Department Care Team Description 09/08/2024 10:15 AM CDT Office Visit [facility] Ophthalmology [address] [place] [phone] Hank Watkins MD NAION (non-arteritic anterior ischemic optic neuropathy), right eye (Primary Dx); Optic neuropathy, right 09/08/2024 9:30 AM CDT Imaging Exam [facility] Ophthalmology [address] [phone] Pseudopapilledema of both optic discs 09/08/2024 9:20 AM CDT Imaging Exam [facility] Ophthalmology [address] [place] [phone] Pseudopapilledema of both optic discs; Encounter for observation for other suspected diseases and conditions ruled out 08/31/2024 Telephone [facility] Op[facility]mology [facility] [address] [phone] Hank Watkins MD 07/28/2024 Orders Only [facility] Ophthalmology [address] [facility] [address] [place] [phone] Hank Watkins MD Pseudopapilledema of [...] capsule, sprinkle Take by mouth Active vitamins A,C,O-five-bdbnw r (OCUVITE) 2,148 mcg-113 mg-45 mg-17.4mg tablet [...] on file 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
--- NOTE | 2024-10-05 12:38 | P.HP_ITS ---
H&P: HPI History of Present Illness Date/Time: 10/05/24 12:38 Chief Complaint: Neck and arm pain Narrative: Cheryl is a 68-year-old female with a past medical history significant for a C5-6 and C6-7 anterior cervical diskectomy and fusion done in 2002 or 2003. She now has about a 6 month history of pain in her neck radiating to her right shoulder and down her right upper extremity all the way down to the fingers nonspecifically. She does not report any specific muscle group weakness or dermatomal numbness. She does not have any bowel or bladder difficulty. Her pain does seem to be worse with activity that is a gets worse the more active she is. It especially her to the next day after being particularly active. It is severe and limiting for her on a daily basis. She participated in physical therapy without any permanent benefit. Review of Systems Review of Systems: All systems reviewed & are unremarkable except as noted in HPI and below Denies chills, Denies fever, Denies weight gain and Denies weight loss Eyes Denies change in vision and Denies diplopia ENT Denies disequilibrium Card Denies chest pain and Denies dyspnea Resp Denies cough and Denies dyspnea GI Denies abdominal pain, Denies change in bowel habits, Denies fecal incontinence and Denies vomiting Denies hematuria, Denies oliguria, Denies difficulty urinating, Denies dysuria, Denies urinary frequency, Denies urinary hesitancy, Denies urinary incontinence and Denies urinary urgency Musc Reports as per HPI Skin/ Breast Reports system reviewed and no additional complaints, except as documented Neuro Reports as per HPI Psych Reports no additional complaints, Denies depression and Denies hopelessness Endo Reports no additional complaints and Denies polyuria Bruno/ Lymph Reports no additional complaints Aller/ Immun Reports no additional complaints PMFSH Past Medical History Medical History Anterior ischemic optic neuropathy, right eye Chronic headaches POTS (postural orthostatic tachycardia syndrome) Surgical History Surgical History History of tubal ligation 1989 History of neck surgery 2002 History of hysterectomy 1995 Family History Family History Other Cancer Social History Social History (Updated 07/06/24 @ 09:31 by Brittni Burnett CMA) Smoking packs per day: 1 Smoking cigarettes per day: 20.0 Years smoked: 25 Smoking pack-years: 25.00 Smoking status: Former smoker Tobacco type: cigarettes Smoking end date: 05/12/98 Additional smoking assessment comments: Quit at age 43. 25 pk yr history Alcohol intake: current Drinks per week: 6 Substance use: never Substance use type: does not use Do You Feel Safe in your Home?: Yes Lack of Transportation: No Lack of Food: Never True Current Housing: I Have Housing Concerned About Future Housing: No Difficulty Paying Gas/Electric Bills: No Difficulty Paying for Meds: No Currently Unemployed: Decline to Answer Education: High School Diploma/GED Difficulty w/ Childcare or Family Care: No Living arrangements: with family Additional living arrangements comments: CHILD Spiritual care concerns: No Meds Home Medications and Allergies Home Medications ?Medication ?Instructions ?Recorded ?Confirmed ?Type atorvastatin 40 mg tablet 40 mg PO DAILY #90 tabs 02/12/24 09/22/24 Rx ibuprofen 400 mg tablet (IBU) 400 mg PO PRN PRN pain 09/22/24 10/05/24 History lactobacillus combination no.4 3 3,000 mmu cells PO DAILY 09/22/24 09/22/24 History billion cell capsule (Probiotic) Allergies Allergy/AdvReac Type Severity Reaction Status Date / Time morphine AdvReac Severe Vomiting Verified 10/05/24 12:08 Vital Signs Vital Signs - 24 hr 10/05/24 11:00 Temperature 97.8 F Pulse Rate 62 Respiratory Rate 14 Blood Pressure 142/76 H Pulse Oximetry 100 Oxygen Delivery Room Air Exam Narrative: General: cooperative, no acute distress, well developed, alert and awake Orientation/Consciousness: oriented to person, oriented to place and oriented to time Constitutional Limitations: no limitations Other: The patient is a normally developed, normal appearing female sitting on the examination table in no acute distress. She is awake, alert, and oriented x3 wit h good fund of knowledge, recall of events, and fluent speech. HENDC Head: normocephalic and atraumatic Ears: external ears normal Face/Nose/Sinus: Normal external nose present Eyes Eyelids: eyelids normal Pupils: Yes Pupils normal by confrontation EOM: EOMs intact bilaterally Neck General: Yes no meningeal signs, Yes supple and Yes no JVD Resp Effort/Inspection: normal respiratory effort and able to speak in complete sentences Cardio Rate: Yes regular rate GI Inspection: No abdominal distension Musc Other: Examination of the back reveals no tenderness. Range of motion of the back is full without pain in forward flexion, extension, and lateral rotation to both sides. Straight leg raise is negative bilaterally. Antwan?s test is negative bilaterally. Skin General: normal color Neuro General: Yes oriented to person, Yes oriented to place, Yes oriented to time, Yes normal cognition and Yes no meningeal signs Cranial Nerves: Yes CN's II-XII intact bilaterally Other: Motor: Strength is normal, 5/5, throughout all muscle groups of the bilateral upper extremities to direct confrontation. Sensory: Sensation is intact to light touch throughout the upper extremities bilaterally. Reflexes: Deep tendon reflexes Are normal and symmetric at the knees and ankles and at the biceps and brachioradialis bilaterally. They were difficult to elicit the triceps. There is no Mendoza's. There is no clonus. Gait: Gait, station, and transfers are independent and steady for short periods of time and over short distances. Psych Appearance: grossly normal Mental status: Yes mental status grossly normal Mood: congruent mood Affect: Yes normal affect Speech/Movement: Normal speech and movement present Attitude: Yes cooperative Thought Content: Normal thought content present Review of studies: MRI of the cervical spine was personally reviewed by me. This demonstrates stable appearing construct from C5-7. At C3-4 and C4-5 there is significant degeneration of the disc worst at C4-5 with foraminal stenosis also worst at C4- 5 bilaterally. There is retrolisthesis of C4 on C5. Assessment and Plan Assessment and plan (1) Cervical spondylosis: Code(s): M47.812 - Spondylosis without myelopathy or radiculopathy, cervical region Status: Acute (2) Foraminal stenosis of cervical region: Code(s): M48.02 - Spinal stenosis, cervical region Status: Acute Plan Cheryl is a 68-year-old female with neck and arm discomfort on the right related to the process at C3-4 and C4-5. I see no fence of pathology at C7-T1 and the construct at C5 through 7 appears solid. I have recommended to her anterior cervical diskectomy and fusion at C3-4 and C4-5 and described to her that operation, its risks, potential benefits, the operative and postoperative course in detail and answered all her questions personally. We discussed risks including but not limited to permanent neurologic or functional deficit related injury of the trachea, esophagus, carotid artery, jugular vein, recurrent laryngeal nerve causing hoarseness or aspiration, spinal cord or nerve roots causing permanent neurologic deficit, need for reoperation secondary to infection, bleeding, CSF leak, adjacent level disease, recurrent residual pathology or instability, malposition migration of the hardware or nonunion, failure of the procedure to relieve her pain or symptoms, persistent pain, medical complications related anesthesia or surgery, etc.. She indicates understanding and elects to proceed with that operation.
--- NOTE | 2024-10-05 12:42 | P.PNAN_ITS ---
Anes - Initial Pre Proc Eval Procedure: Operation Date: 10/05/24 12:30 Proposed Procedures p C3-4, C4-5 Anterior Cervical Discectomy and Fusion - Karson Johnson MD Date/Time: 10/05/24 12:42 Surgeon: Karson Johnson MD Pre Op Diagnosis: c3-4, c4-5 spondylosis, neuroforam narrow Patient Data Age: 69 Gender: F Height: 1.56 m Weight: 59.3 kg Last Vital Signs Temp 97.8 F 10/05/24 11:00 Pulse 62 10/05/24 11:00 Resp 14 10/05/24 11:00 BP 142/76 H 10/05/24 11:00 Pulse Ox 100 10/05/24 11:00 O2 Del Method Room Air 10/05/24 11:00 Allergies Allergy/AdvReac Type Severity Reaction Status Date / Time morphine AdvReac Severe Vomiting Verified 10/05/24 12:08 Home Medications ?Medication ?Instructions ?Recorded ?Confirmed ?Type atorvastatin 40 mg tablet 40 mg PO DAILY #90 tabs 02/12/24 09/22/24 Rx ibuprofen 400 mg tablet (IBU) 400 mg PO PRN PRN pain 09/22/24 10/05/24 History lactobacillus combination no.4 3 3,000 mmu cells PO DAILY 09/22/24 09/22/24 History billion cell capsule (Probiotic) hydrocodone 5 mg-acetaminophen 325 1 - 2 tablet PO Q4H PRN pain #30 10/06/24 Rx mg tablet tabs methylprednisolone 4 mg tablets in See Rx Instructions PO PER PKG DIR 10/21/24 Rx a dose pack (Medrol (Chacho)) #21 ea Patient hx anesthesia problems: none Family hx anesthesia problems: none Results Review: All pre-operative results and documents have been reviewed as part of the pre- operative evaluation. [facility] Past Medical History Medical History Anterior ischemic optic neuropathy, right eye Chronic headaches POTS (postural orthostatic tachycardia syndrome) Surgical History Surgical History History of tubal ligation 1989 History of neck surgery 2002 History of hysterectomy 1995 Family History Family History Other Cancer Social History Social History (Updated 07/06/24 @ 09:31 by Brittni Burnett CMA) Smoking packs per day: 1 Smoking cigarettes per day: 20.0 Years smoked: 25 Smoking pack-years: 25.00 Smoking status: Former smoker Additional smoking assessment comments: Quit at age 43. 25 pk yr history Alcohol intake: current Drinks per week: 6 Substance use: never Substance use type: does not use Do You Feel Safe in your Home?: Yes Lack of Transportation: No Lack of Food: Never True Current Housing: I Have Housing Concerned About Future Housing: No Difficulty Paying Gas/Electric Bills: No Difficulty Paying for Meds: No Currently Unemployed: Decline to Answer Education: High School Diploma/GED Difficulty w/ Childcare or Family Care: No Living arrangements: with family Additional living arrangements comments: CHILD Spiritual care concerns: No Anes - Eval Final PreProcedure Day of Procedure 10/05/24 12:42 Patient weight: normal Heart: regular rate and rhythm Lungs: clear to auscultation Airway: Mallampati scale class II Neurological: alert and oriented Last oral intake: >/= 8 hours ASA classification: III Emergent: no Anesthetic plan: proceed Anesthesia type and monitoring: general ETT and standard monitoring Results Review: All pre-operative results and documents have been reviewed as part of the pre- operative evaluation. Informed Consent: The patient's anesthetic plan and its attendant risks and benefits were discussed with the patient/family/POA. Questions were solicited and answers provided to the satisfaction of the patient/family/POA.
[2024-10-05] MEDS: LACTATED RINGERS 1,000 ML 30 ML IV CONT ×2 (12:55→14:58)
--- NOTE | 2024-10-05 13:06 | WPDHPUPDATE1 ---
History and Physical Update Update Date/Time: 10/05/24 13:06 History and Physical has been reviewed, including an updated exam of the patient. There are NO changes in the patient's condition. Risks, benefits, and alternatives have been discussed and questions answered. Patient agrees to proceed with procedure.
[2024-10-05] MEDS: LIDO 1%/EPINEPHRINE 1:100,000 20 ML VIAL 10 ML INFILTRATE (13:12)
[2024-10-05] MEDS: ceFAZolin 2 GM/D5W 50 ML 2 GM/50 ML BAG IVPB (13:12)
--- NOTE | 2024-10-05 14:51 | P.OP_ITS ---
Procedure Note - Detailed Date of Procedure 10/05/24 Pre-op Diagnosis c3-4, c4-5 spondylosis, neuroforam narrow Post-op Diagnosis Same Procedure Performed C3-4 and C4-5 complete diskectomy and bilateral neural foraminotomy, C3-4 and C4-5 interbody arthrodesis and anterior cervical plating utilizing peek interbody device with integral titanium plate and screws. Surgeon Karson Johnson MD Anesthesia General Description of Procedure Patient was brought to the operating room in the supine position, was sedated, intubated placed under general anesthesia in routine fashion. The of operation on the right side of the neck was examined, marked for incision, prepped routine sterile fashion. Incision was marked from the midline over the medial aspect of the sternocleidomastoid muscle and curvilinear transverse fashion 2 fingerbreadths above the sternal notch. This area was injected with 0.5% lidocaine with [id number] epinephrine. Intravenous antibiotics given prior to incision. Incision was made with a 10 blade scalpel down to the platysma muscle. The skin was undermined the platysma muscle was divided longitudinally with its fibers using Metzenbaum scissors. A plane was then dissected medial to the sternocleidomastoid muscle down to the anterior aspect of spine using the finger Metzenbaum scissors. A verifying x-rays obtained to verify the level of operation. The longus colli muscle was dissected free of the anterior aspect of the spine in a subperiosteal plane using Bovie cautery at C3-4 and C4-5. Shadow Line retractor system was placed. Cordell pins were placed in C3 and C5 and distraction placed over both interspaces. The anterior plate below was identified. Diskectomy and arthrodesis procedures were performed identically at each level. The disc space was entered using a 15 blade scalpel cutting along the margin of the bone above and below. A curved curette pituitary rongeur used to remove as much cartilaginous endplate and disc material as possible down to the annulus and ligament posteriorly. A [employer] drill was used to bur down the endplates to bleeding cortical flat surfaces as well as to begin a bony foraminotomy bilaterally. Under microscopy the annulus and ligament were interrupted using an 4-0 curved curette. 2. Kerrison punch was used to remove annulus, ligament, posterior osteophyte and to complete a bony foraminotomy bilaterally. This was done until a nerve hook could be placed out each foramen and in the ventral epidural space to confirm lack of compression. The disc spaces were then sized appropriately sized interbody devices with interval titanium plates were chosen filled with local autograft bone and magnetos. It was necessary to remove the plate below using the appropriate drivers as it interfered with the device is being placed. The fusions were explored at C5-6 and C6-7 to make sure that there was solid bony fusion at both levels. This was confirmed. The integral interbody devices and anterior plates were then placed flush with the disc spaces. The Cordell pins and distraction removed. A hand drill was used to create holes diagonally at an angle into the endplates above and below at each device and 4 x 16 mm screws were placed into the locking mechanism of the device. The locking mechanism was engaged at each screw. A verifying x-rays obtained to verify good position of the instrumentation which was confirmed. The wound was then copiously irrigated with bacitracin irrigation all bleeding stopped with bipolar and Bovie cautery and Gelfoam thrombin powder. The wound was then closed in layered fashion with 3-0 Vicryl interrupted sutures in the platysma muscle and in the dermis. The skin was closed with a running 4-0 Monocryl subcuticular stitch and dressed with Dermabond. The patient was allowed to wake up in the operating room and was taken to the recovery room in stable condition. There were no immediate complications of this operation. All counts reported correct at the end the case. Blood loss was 25 cc. The patient was neurologically at baseline postoperatively. CPT codes: 65511, 48731, 86008, 04470 x 2, 24770 x 2, 33652 X2 Estimated Blood Loss 25 Complications None Condition Stable Disposition PACU [facility] Billing Surgery - Charge Forward: Surgery Billing
[2024-10-05] MEDS: HYDROcodone/acetaminophen (*CRX) 10-325 MG TABLET 1 TAB PO ×2 (16:39→21:13)
[2024-10-05] MEDS: CYCLOBENZAPRINE HCL 10 MG TABLET PO (16:39)
[2024-10-05] MEDS: ONDANSETRON INJ 4 MG/2 ML VIAL IV PUSH (17:45)
[2024-10-05] MEDS: DOCUSATE SODIUM 100 MG CAPSULE PO (21:13)
[2024-10-06] MEDS: HYDROcodone/acetaminophen (*CRX) 10-325 MG TABLET 1 TAB PO ×2 (01:28→06:12)
[2024-10-06 02:03] VITALS: BP 128/59; PULSE 73; RESP 12; TEMP 36.2; O2SAT 100
[2024-10-06] MEDS: ONDANSETRON INJ 4 MG/2 ML VIAL IV PUSH (03:11)
[2024-10-06 06:03] VITALS: BP 136/66; PULSE 80; RESP 14; TEMP 36.1; O2SAT 99
[2024-10-06 08:37] LABS: Basophils Absolute Auto 0.1 K/mm3 (0.0-0.1); Basophils Percent Auto 0.3 % (0.2-1.2); Hematocrit 39.8 % (37.0-47.0); Hemoglobin 13.6 g/dL (12.0-15.0); Immature Granulocyte Absolute 0.07 K/mm3 (0.00-0.031); Immature Granulocyte Percent A 0.4 % (0-0.5); Lymphocytes Absolute Auto 2.04 K/mm3 (0.9-3.2); Lymphocytes Percent Auto 11.5 % (18.3-44.2); Mean Corpuscular HGB Conc 34.2 g/dl (32-36); Mean Corpuscular Hemoglobin 32.4 pg (26-34); Mean Corpuscular Volume 94.8 fl (80-100); Mean Platelet Volume 9.8 fl (7.4-10.4); Monocytes Percent Auto 11.4 % (2.6-8.5); Neutrophils Absolute Auto 13.5 K/mm3 (1.3-6.7); Neutrophils Percent Auto 76.4 % (45.5-73.1); Platelet Count Result 300 k/mm3 (150-375); Red Cell Distribution Width 12.8 % (11.5-14.5); White Blood Count 17.7 K/mm3 (4.5-10.0)
[2024-10-06 08:50] LABS: Alanine Aminotransferase 21 U/L (6-35); Albumin Level 4.7 g/dL (3.5-5.1); Alkaline Phosphatase 49 U/L (38-126); Anion Gap 8 mmol/L (4-12); Aspartate Amino Transferase 28 U/L (14-36); Bilirubin,Total 0.6 mg/dL (0.2-1.3); Blood Urea Nitrogen 13 mg/dL (7-17); Calcium 9.5 mg/dL (8.4-10.2); Carbon Dioxide 27 mmol/L (22-30); Chloride 100 mmol/L (98-107); Estimated CRCL calculation 74 ml/min; Estimated Glomerular Filt Rate > 60; Glucose 107 mg/dL (65-110); Potassium 3.8 mmol/L (3.4-5.0); Sodium 135 mmol/L (137-145)
[2024-10-06 10:03] VITALS: BP 126/69; PULSE 68; RESP 16; TEMP 36.4; O2SAT 100
[2024-10-06] MEDS: HYDROcodone/acetaminophen (*CRX) 5-325 MG TABLET 1 TAB PO (10:20)
[2024-10-06] MEDS: DOCUSATE SODIUM 100 MG CAPSULE PO (10:20)
[2024-10-06] MEDS: ACIDOPHILUS/BULGARICUS CHEWABLE TABLET 1 TABLET PO (10:20)
[2024-10-06] MEDS: ATORVASTATIN 40 MG TABLET PO (10:20)
[2024-10-06] MEDS: CYCLOBENZAPRINE HCL 10 MG TABLET PO (10:21)
== END 2024-10-06 13:56 | disposition home or self-care (01) ==
LOC: ANHSURGERY 10:04 → ANH3MEDSUR 16:04
PROVIDERS: PCP Family Medicine; Visit Provider Neurological Surgery
PROC: (CPT 63030; principal; 2024-10-05 12:30)
DX: M47.812 Spondylosis without myelopathy or radiculopathy, cervical region (principal); M48.02 Spinal stenosis, cervical region; R51.9 Headache, unspecified; G90.A Postural orthostatic tachycardia syndrome [POTS]; Z79.1 Long term (current) use of non-steroidal anti-inflammatories (NSAID); Z98.890 Other specified postprocedural states; Z98.51 Tubal ligation status; Z98.1 Arthrodesis status; Z87.891 Personal history of nicotine dependence; Z80.9 Family history of malignant neoplasm, unspecified
CPT/HCPCS: 22551; 22552; 22853 ×2; 20936; 36415; 80053; 85025; 97161; 97165; 99199; A9270; C1713; J0690; J1100; J1171; J2003; J2004; J2250; J2405; J2704; J3010; J7120

== ENCOUNTER 2024-11-22 09:09 | Outpatient (CLI) | payer MEDICARE, SELFPAY ==
--- NOTE | ~2024-11-22 | XR_ITS ---
[id number] Ordering provider: Karson Johnson MD History: . M48.02 - Spinal stenosis, cervical region . Comparison: January 15, 2024 FINDINGS: VERTEBRAL BODIES: Normal height and alignment. No visible fracture or subluxation. The dens is intact . Postoperative changes at the level of C3-C4 and C4-C5 noted. DISK SPACES: Narrowing of the disc C6-C7 with possible effusion. Fusion at the level of C5-C6 is also highly suggestive. PARASPINOUS SOFT TISSUES: No prevertebral soft tissue swelling. IMPRESSION: No acute osseous abnormality cervical spine. Postoperative changes seen anteriorly. Reviewed, dictated and finalized at location A.
--- OUTSIDE RECORDS SUMMARY | 2024-11-22 09:14 | XMS_ITS | Referral Summary ---
Author Organization [facility] Address [address] [place] [address] Care Team Providers Care Health Care Legal Assistant Name Role Phone Elvin Cárdenas DO Primary Care Provider Encounters Date Type Department Care Team Description 09/08/2024 10:15 AM CDT Office Visit [facility] Ophthalmology [address] [place] [address] [phone] Hank Watkins MD NAION (non-arteritic anterior ischemic optic neuropathy), right eye (Primary Dx); Optic neuropathy, right 09/08/2024 9:30 AM CDT Imaging Exam [facility] Ophthalmology [address] [place] [address] [place] [phone] Pseudopapilledema of both optic discs 09/08/2024 9:20 AM CDT Imaging Exam [facility] Ophthalmology [address] [place] [phone] Pseudopapilledema of both optic discs; Encounter for observation for other suspected diseases and conditions ruled out 08/31/2024 Telephone [facility] Ophthalmology [address] [place] [address] [phone] Hank Watkins MD from Last 3 Months Allergies Active Allergy Reactions Criticality Noted Date Comments Morphine Other (See comments),Unknown Medium 022 Nausea Medications atorvastatin (LIPITOR) 80 mg tablet Take 1 tablet (80 mg total) by mouth daily Active lactobacillus combo no.11 15 billion cell capsule, sprinkle Take by mouth Active vitamins A,C,T-txmy-vbgke r (OCUVITE) 2,148 mcg-113 mg-45 mg-17.4mg tablet [...] on file 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 MEDICARE AD[facility]AGE [facility] MEDICARE Address: [address] [address] [facility] MEDICARE AD[facility]AGE [facility] MEDICARE Address: [address] [address] Care Teams Health Care Legal Assistant Relationship Specialty Start Date End Date Elvin Cárdenas DO [address] [place] [address] PCP - General Family Medicine 02/24/24
--- OUTSIDE RECORDS SUMMARY | 2024-11-22 09:14 | XMS_ITS | Clinical Summary ---
Author Organization [facility] Address [address] [place] [address] Care Team Providers Care Industrial Electrician Name Role Phone Elvin Cárdenas DO Primary Care Provider Allergies Active Allergy Reactions Criticality Noted Date Comments Morphine Other (See comments),Unknown Medium 022 Nausea Medications atorvastatin (LIPITOR) 80 mg tablet Take 1 tablet (80 mg total) by mouth daily Active lactobacillus combo no.11 15 billion cell capsule, sprinkle Take by mouth Active vitamins A,C,W-kcyt-mpjqy r (OCUVITE) 2,148 mcg-113 mg-45 mg-17.4mg tablet [...] Description 09/08/2024 10:15 AM CDT Office Visit [facility]mology [address] [facility] [address] [place] [phone] Hank Watkins MD NAION (non-arteritic anterior ischemic optic neuropathy), right eye (Primary Dx); Optic neuropathy, right 09/08/2024 9:30 AM CDT Imaging Exam [facility] Ophthalmology [address] [place] [address] [phone] Pseudopapilledema of both optic discs 09/08/2024 9:20 AM CDT Imaging Exam [facility] Ophthalmology [address] [place] [phone] Pseudopapilledema of both optic discs; Encounter for observation for other suspected diseases and conditions ruled out 08/31/2024 Telephone [facility]hthal[facility] [address] [phone] Hank Watkins MD from Last 3 Months Surgical History Surgery [...] on file 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 us Hank Watkins MD OPHTH TOMOGRAPHY [facility] al Result * OCT, Retina - OU [...] inal Result from Last 3 Months Insurance [facility] MEDICARE ADVANTAGE [facility] Address: [address] [address] [place] [address] [facility] MEDICARE ADVANTAGE [facility] Address: [address] [address] [place] [address] Care Teams Industrial Electrician Relationship Specialty Start Date End Date Elvin Cárdenas DO [address] [place] [address] PCP - General Family Medicine 02/24/24
== END 2024-11-22 09:10 | disposition home or self-care (01) ==
LOC: CHSIMG 09:11
PROVIDERS: PCP Family Medicine; Visit Provider Neurological Surgery
DX: M48.02 Spinal stenosis, cervical region (principal)
CPT/HCPCS: 72040

== ENCOUNTER 2025-02-05 12:03 | Outpatient (CLI) | payer MEDICARE, SELFPAY ==
--- NOTE | ~2025-02-05 | MR_ITS ---
EXAMINATION: MR cervical spine wo con DATE: 02/05/2025 12:45 INDICATION: Cervical spine fusion. TECHNIQUE: Magnetic resonance imaging (MRI) of the cervical spine was performed without intravenous contrast. COMPARISON: Cervical spine MRI 03/27/2024, radiographs 11/22/2024 FINDINGS: There is 2 mm anterolisthesis of C7 on T1. There are changes of anterior fusion procedure at C3-C4 and C4-C5 with interbody devices and anterior plates and screws. There is healed interbody fusion at C5-C6 and C6-C7. The spinal cord signal intensity is normal. The following disc levels are sp ecifically discussed: C2-C3: The disc does not extend beyond the endplate margin. There is no uncovertebral joint osteoarthritis. There is severe right and mild left facet joint osteoarthritis. There is mild right neural foraminal stenosis. There is no central canal stenosis. C3-C4: There is severe bilateral uncovertebral joint hypertrophy. There is severe bilateral facet joint osteoarthritis. There is moderate right and mild left neural foraminal stenosis. There is mild central canal stenosis. C4-C5: There is severe bilateral uncovertebral joint hypertrophy. There is moderate bilateral facet joint osteoarthritis. There is severe bilateral neural foraminal stenosis. There is mild central canal stenosis. C5-C6: There is mild bilateral uncovertebral joint hypertrophy. There is no facet joint hypertrophy. There is mild left neural foraminal stenosis. There is no central canal stenosis. C6-C7: There is moderate bilateral uncovertebral joint hypertrophy. There is no facet joint hypertrophy. There is mild right and moderate left neural foraminal stenosis. There is no central canal stenosis. C7-T1: The disc does not extend beyond the endplate margin. There is no uncovertebral joint osteoarthritis. There is moderate right and severe left facet joint osteoarthritis. There is mild left neural foraminal stenosis. There is no central canal stenosis. IMPRESSION: 1. Anterior fusion procedures from C3-C4 through C6-C7. 2. Moderate cervical spondylosis. Reviewed, dictated and finalized at location E.
== END 2025-02-05 12:04 | disposition home or self-care (01) ==
LOC: CHSIMG 12:04
PROVIDERS: PCP Family Medicine; Visit Provider Neurological Surgery
DX: M79.601 Pain in right arm (principal); Z98.1 Arthrodesis status; M43.02 Spondylolysis, cervical region
CPT/HCPCS: 72141

== ENCOUNTER 2025-02-09 07:23 | Outpatient (CLI) | payer MEDICARE, SELFPAY ==
--- OUTSIDE RECORDS SUMMARY | 2025-02-09 07:27 | XMS_ITS | Clinical Summary ---
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 Gender Identity Not on file Sexual Orientation Not on file Last Filed Vital Signs Vital Sign Reading Time Taken Comments Blood Pressure 140/90 07/03/2022 9:31 AM BUYER LIAISON Pulse 88 07/03/2022 9:30 AM BUYER LIAISON Temperature 35.6 C (96.1 F) 05/20/2022 1:00 PM BUYER LIAISON Respiratory Rate 18 07/03/2022 9:30 AM BUYER LIAISON Oxygen Saturation 96% 05/20/2022 1:00 PM BUYER LIAISON Inhaled Oxygen Concentration - - Weight 64.4 kg (142 lb) 07/03/2022 9:30 AM BUYER LIAISON Height 157.5 cm (5' 2) 07/03/2022 9:30 AM BUYER LIAISON Body Mass Index 25.97 07/03/2022 9:30 AM BUYER LIAISON Plan of Treatment Health Maintenance Due Date Last Done Comments Colorectal Cancer Screening Colonoscopy (10 Years) 1957 Hepatitis C 07/14/1975 DTaP, Tdap and Td Vaccines ( 1 - Tdap) 1976 Mammogram Screening 1997 Pneumococcal Vaccine: 50+ Years (1 of 1 - PCV) 07/14/2007 Zoster Vaccines (1 of 2) 07/14/2007 Dexa Scan (General) 2022 COVID-19 Vaccine (3 - 2024-2 6 season) 2025 04/12/2022, 03/27/2021 Influenza Adult (#1) 2025 RSV Immunization or 60+ Years (1 - [...] patient's age to complete this topic Insurance MEDICAID Care Teams Email Marketing Intern Relationship Specialty Start Date End Date Elvin Cárdenas DO [address] [place] [address] PCP - General FAMILY PRACTICE 04/18/22 Ubaldo Negrete MD [address] [place] [address] Consulting Physician INTERVENTIONAL CARDIOLOGY 04/18/22
--- OUTSIDE RECORDS SUMMARY | 2025-02-09 07:27 | XMS_ITS | Clinical Summary ---
Author Organization [facility] Address [address] [place] [address] Care Team Providers Care Frame Table Operator Helper Name Role Phone Elvin Cárdenas DO Primary Care Provider Tianna Roth Esha OD Unavailable + Allergies Active Allergy Reactions Criticality Noted Date Comments Morphine Other (See comments),Unknown Medium 022 Nausea Medications atorvastatin (LIPITOR) 80 mg tablet Take 1 tablet (80 mg total) by mouth daily Active lactobacillus combo no.11 15 billion cell capsule, sprinkle Take by mouth Active vitamins A,C,Z-vahr-mjoep r (OCUVITE) 2,148 mcg-113 mg-45 mg-17.4mg tablet 1 tablet Active Active Problems Problem Noted Date Diagnosed Date Optic neuropathy, right 09/08/2024 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), 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 Head injury 06/07/2024 Migraine 06/07/2024 Cervical vertebral fusion 06/07/2024 Neck pain 06/07/2024 POTS (postural orthostatic tachycardia syndrome) 06/07/2024 Overview (06/07/2024): Diagnosed in 2022 Encounters Date Type Department Care Team Description 12/08/2024 10:15 AM CDT Office Visit [facility] Medicine Ophthalmology [address] [place] [phone] Hank Watkins MD Encounter for observation for other suspected diseases and conditions ruled out (Primary Dx); Unspecified disorder of visual pathways; NAION (non-arteritic anterior ischemic optic neuropathy), right eye; Optic neuropathy, right 12/08/2024 9:50 AM CDT Imaging Exam [facility] Ophthalmology [address] [place] [phone] Unspecified disorder of visual pathways; Encounter for observation for other suspected diseases and conditions ruled out 12/08/2024 9:30 AM CDT Imaging Exam [facility] Medicine Ophthalmology [address] [place] [phone] Unspecified disorder of visual pathways 12/03/2024 Telephone [facility] Medicine Ophthalmology [address] [place] [phone] Hank Watkins MD from Last 3 Months [...] on file 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 Gender Identity Not on file Sexual Orientation [...] 65+ 2022 Covid-19 Vaccine (3 - season) 01/10/202506/2021, 03/27/2021 Influenza Vaccine (#1) 2025 02/12/2024, 2022 Procedures Procedure Name Priority Date/Time Associated Diagnosis Comments BARAKAT VISUAL FIELD - OU - BOTH EYES Routine 12/08/2024 9:21 AM CDT Unspecified disorder of visual pathways OCT, OPTIC NERVE - OU - BOTH EYES Routine 12/08/2024 9:20 AM CDT Unspecified disorder of visual pathways OCT, RETINA - OU - BOTH EYES Routine 12/08/2024 9:20 AM CDT Encounter for observation for other suspected diseases and conditions ruled out from Last 3 Months Results * Barakat Visual Field - OU - Both Eyes (12/08/2024 9:21 AM CDT) Pattern Deviation OS 1.68 dB CONTINUUM Pattern Deviation OD 3.64 dB CONTINUUM Mean Deviation OS 0.28 dB CONTINUUM Mean Deviation OD -0.92 dB CONTINUUM Anatomical Region Laterality Modality Head Other Narrative 12/08/2024 5:32 PM CDT Right Eye Fixation was poor. Cooperation was borderline. Reliability was borderline. Progression has been stable. Foveal threshold was normal. Findings include inferior arcuate defect. Mean Deviation was -0.92 dB. Pattern Deviation was 3.64 dB. Left Eye Fixation was borderline. Cooperation was borderline. Reliability was poor. Progression has been stable. Foveal threshold was normal. Findings include normal observations. Mean Deviation was 0.28 dB. Pattern Deviation was 1.68 dB. Hank Watkins MD OPHTH VISUAL FIELD F inal Result * OCT, Optic Nerve - OU - Both Eyes (12/08/2024 9:20 AM CDT) Anatomical Region Laterality Modality Head Other Narrative 12/09/2024 9:30 AM CDT Right Eye Reliability was good. Left Eye Reliability was good. Notes Stable OU. Hank Watkins MD OPHTH TOMOGRAPHY Fin al Result * OCT, Retina - OU - Both Eyes (12/08/2024 9:20 AM CDT) Anatomical Region Laterality Modality Head Other Narrative 12/09/2024 9:29 AM CDT Right Eye Quality was good. Scan locations included subfoveal. Progression has been stable. Findings include normal foveal contour. Left Eye Quality was good. Scan locations included subfoveal. Findings include normal foveal contour. Notes Stable OU. Hank Watkins MD OPH TOMOGRAPHY Javier juan Result - Final from Last 3 Months Insurance [facility] MEDICARE ADVANTAGE Care Teams Frame Table Operator Helper Relationship Specialty Start Date End Date Elvin Cárdenas DO [address] [place] [address] PCP - General Family Medicine 02/24/24 Tianna Roth OD [address] [place] [id number] Primary Eye Care Provider Optometry 12/08/24
[2025-02-09 07:39] LABS: Hematocrit 41.2 % (35.0-42.0); Hemoglobin 13.6 g/dL (11.7-13.8); Immature Granulocyte Percent A 0.2 % (0.0-0.0); Lymphocytes Absolute Auto 2.75 K/mm3 (1.10-4.50); Mean Corpuscular HGB Conc 33.0 g/dL (32-36); Mean Corpuscular Hemoglobin 32.2 pg (27.0-31.0); Mean Corpuscular Volume 97.6 fL (78.0-102.0); Nucleated Red Blood Cells Absolute Auto 0.00 K/mm3 (0.00-0.00); Nucleated Red Blood Cells Perc 0.0 % (0-0.0); Platelet Count Result 318 K/mm3 (150-420); Red Blood Count 4.22 M/mm3 (4.20-5.40); White Blood Count 6.7 K/mm3 (4.8-10.8)
[2025-02-09 08:20] LABS: Alanine Aminotransferase 19 U/L (6-35); Albumin Level 4.7 g/dL (3.5-5.1); Alkaline Phosphatase 46 U/L (38-126); Anion Gap 7 mmol/L (4-12); Aspartate Amino Transferase 25 U/L (14-36); Bilirubin,Total 0.7 mg/dL (0.2-1.3); Blood Urea Nitrogen 12 mg/dL (7-17); Calcium 10.2 mg/dL (8.4-10.2); Carbon Dioxide 29 mmol/L (22-30); Chloride 107 mmol/L (98-107); Cholesterol 251 mg/dL (0-200); Estimated Glomerular Filt Rate > 60; Glucose 97 mg/dL (65-110); HDL Direct 68 mg/dL; Osmolality Calculated 295 mOsm/kg (285-295); Potassium 4.7 mmol/L (3.4-5.0); Sodium 143 mmol/L (137-145); Total Protein 7.3 g/dL (6.3-8.2); Triglycerides 151 mg/dL (<150)
[2025-02-09 08:51] LABS: Thyroid Stimulating Hormone Reflex 0.489 uIU/mL (0.465-4.68)
== END 2025-02-09 07:24 | disposition home or self-care (01) ==
LOC: CHSLAB 07:24
PROVIDERS: PCP Family Medicine; Visit Provider Family Medicine
DX: E03.9 Hypothyroidism, unspecified (principal)
CPT/HCPCS: 36415; 80053; 80061; 84443; 85025